=== PATIENT | male | born 1960 | race Two or more races ===

== ENCOUNTER → 2024-03-25 | Outpatient (CLI) | payer OTHER, SELFPAY ==
[2024-03-25 10:52] LABS: Anion Gap 6 (7-16); BUN/Creatinine Ratio 24 Ratio (12-20); Blood Urea Nitrogen 22 mg/dL (9-23); Calcium 9.3 mg/dL (8.3-10.6); Carbon Dioxide 30.5 mMol/L (20.0-31.0); Chloride 106 mMol/L (98-107); Creatinine (Component) 0.9 mg/dL (0.6-1.3); Glucose 95 mg/dL (74-106); Osmolality,Calculated 286 (275-295); Potassium 4.4 mMol/L (3.4-5.1); Sodium 142 mMol/L (136-145); eGFR > 60 See Note
== END | disposition home or self-care (01) ==
LOC: COPL 08:52
PROVIDERS: PCP Physician Assistant; Referring Provider Otolaryngology; Visit Provider Otolaryngology
DX: K11.9 Disease of salivary gland, unspecified (principal)
CPT/HCPCS: 36415; 80048

== ENCOUNTER → 2024-04-02 | Outpatient (CLI) | payer OTHER, SELFPAY ==
--- NOTE | 2024-04-02 11:30 | XR_ITS ---
Examination: CT soft tissue neck, with intravenous contrast. 2-D coronal reconstructions. 2-D sagittal reconstructions. Date and time of exam :April 02, 2024 1110 hours INDICATIONS: Right-sided neck lump difficulty swallowing 4 years. CTDI: vol (mGy):14 DLP: (mGycm):438 Technique: 1.25 mm axial sections of the neck of the obtained. Coronal and sagittal reconstructions have been obtained. Intravenous contrast administered 50 cc [id number]. Low dose protocols were performed. One or more of the following dose reduction techniques were used; automated exposure control, adjustment of the mA and/or KV according to patient size, use of iterative reconstruction technique. Findings: Symmetrical optic globes Symmetrical nasopharynx oropharynx Enlarged right parotid gland, mild asymmetry compared to the left No pathologic carotid triangle lymphadenopathy Larger right submandibular gland The larynx appears normal Suspicious for 14 mm right thyroid nodule Normal epiglottis No prevertebral soft tissue prominence 9 mm calcification in distribution of the right submandibular salivary gland duct IMPRESSION: Mild enlargement right parotid gland and right submandibular gland, consider sialoadenitis Suspicious for 9 mm right submandibular duct calculus 14 mm right thyroid nodule
== END | disposition home or self-care (01) ==
LOC: CCTX 10:47
PROVIDERS: PCP Physician Assistant; Referring Provider Otolaryngology; Visit Provider Otolaryngology
DX: K11.8 Other diseases of salivary glands (principal); E04.1 Nontoxic single thyroid nodule
CPT/HCPCS: 70491; A4649; Q9967